=== PATIENT | male | born 1990 | race Caucasian/White ===

== ENCOUNTER 2018-10-05 12:49 | Emergency (ER) | payer OTHER ==
[2018-10-05 13:26] VITALS: TEMP 97.7; O2SAT 100
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
[2018-10-05 14:10] VITALS: BP 132/78; PULSE 68; RESP 18
--- NOTE | 2018-10-05 14:20 | RAD ---
PROCEDURE: Left Knee Radiographs. Three views. HISTORY: Trauma COMPARISON: No prior. FINDINGS: BONES: No acute displaced fracture. JOINTS: No dislocation. JOINT EFFUSION: Small suprapatellar joint effusion. OTHER FINDINGS: None. IMPRESSION: Small suprapatellar joint effusion. No acute displaced fracture or subluxation identified. If symptoms persist or if there is continued clinical concern, x-ray follow-up in 7-10 days should be considered.
== END 2018-10-05 14:10 | disposition home or self-care (01) ==
LOC: C.ER 12:49
DX: S80.02XA Contusion of left knee, initial encounter (principal); V18.0XXA Pedal cycle driver injured in noncollision transport accident in nontraffic accident, initial encounter; Y93.55 Activity, bike riding